=== PATIENT | male | born 1990 | race Caucasian/White ===

== ENCOUNTER → 2020-12-30 | Outpatient (CLI) | payer SELFPAY ==
[2018-05-19 13:55] VITALS: BMI 31.4
--- NOTE | 2020-12-30 | TOBX_PTH ---
PATIENT: TRIPP BELL LOC: [facility] U#:[id number] AGE/SX: 30/M ROOM: RE12/30/[address]: Dr. Jonah Roque DDS : 1990 BED: DIS: 12/30/2020 SPEC #: [id number] RECD: 12/30/20 10:19 STATUS: SHEILA REDominick #: [id number] SY: 12/30/20 00:[address]: Jonah Roque DEPT: SURGICAL PATHOLOGY RECD BY: Manasa Eastman ENTERED: 12/30/20 11:37 SP TYPE: TONGUE BX OTHR DR: Dr. Bud Barakat, DO Tissues: Tongue, NOS Procedures: Surgery Specimen Level IV HEADER OPERATION: Left mandible biopsy PRE-OP DIAGNOSIS: Probable odontogenic cyst TISSUE SUBMITTED: Probable odontogenic cyst MICROSCOPIC DIAGNOSIS Soft tissue cyst of left mandible, biopsy: Consistent with radicular cyst (periapical), inflamed. AM:juan josé 12/31/2020 COMMENT Clinical correlation is suggested. Case has been reviewed in consultation with Dr. Duval who concurs with the above diagnosis. IDC:SALAS MICROSCOPIC DESCRIPTION Sections show benign squamous mucosa overlying fibrous tissue with chronic inflammation. GROSS DESCRIPTION Received in fixative is one container labeled with the patient's name and designated left mandible. The specimen consists of an irregular piece of zavala soft tissue measuring 1.5 x 1 x 0.2 cm. The entire specimen is submitted in one cassette. / SJ:juan josé 12/30/20 TC:5 CPT: 44685
== END | disposition home or self-care (01) ==
LOC: LABSPEC 10:39
PROVIDERS: PCP Family Medicine; Referring Provider Dentist Oral and Maxillofacial Surgery; Visit Provider Dentist Oral and Maxillofacial Surgery
DX: K04.8 Radicular cyst (principal)
CPT/HCPCS: 88305